=== PATIENT | male | born 1955 | race Caucasian/White ===

== ENCOUNTER 2022-02-10 21:26 | Emergency (ER) | payer MEDICARE, OTHER ==
[~2022-02-10] VITALS: Ht 182.9 cm; Wt 77.3 kg
[2022-02-10 21:32] VITALS: TEMP 98.2
[2022-02-11 00:33] VITALS: BP 137/92; PULSE 56
== END 2022-02-11 00:29 | disposition home or self-care (01) ==
LOC: COL.ER 21:26
DX: S06.0X0A Concussion without loss of consciousness, initial encounter (principal); S01.112A Laceration without foreign body of left eyelid and periocular area, initial encounter; F17.210 Nicotine dependence, cigarettes, uncomplicated; V80.010A Animal-rider injured by fall from or being thrown from horse in noncollision accident, initial encounter

== ENCOUNTER → 2024-04-28 | Outpatient (CLI) | payer MEDICARE, OTHER ==
[~2024-04-28] MED LIST: BETAPACE 120MG120 MG PO; BETAPACE 80MG80 MG PO; CEPHALEXIN500 M1 PO; ELIQUIS 5MG PO; FLAXSEED OIL1000 MG PO; FLOMAX 0.40.4 MG/CAP PO; MOTRIN 600600 MG/TAB PO; MULTI-VITAMIN W1 TA1 PO; NORCO 325 MG-51 TAB PO; TOPROL XL 25MG25 MG; TOPROL XL 25MG25 MG PO
== END ==
LOC: MHCPAIN 12:56
DX: M54.12 Radiculopathy, cervical region (principal); M48.02 Spinal stenosis, cervical region; I48.91 Unspecified atrial fibrillation; Z79.01 Long term (current) use of anticoagulants
CPT/HCPCS: G0463